=== PATIENT | female | born 2000 | race Caucasian/White ===

== ENCOUNTER 2021-09-13 21:36 | Emergency (ER) | payer SELFPAY ==
[~2021-09-13] VITALS: Ht 172.7 cm; Wt 68.0 kg
[2021-09-14 01:45] VITALS: BP 115/65
== END 2021-09-14 02:15 | disposition home or self-care (01) ==
LOC: ER 21:36
DX: R55 Syncope and collapse (principal); F12.10 Cannabis abuse, uncomplicated; F10.129 Alcohol abuse with intoxication, unspecified; Y90.0 Blood alcohol level of less than 20 mg/100 ml; F41.9 Anxiety disorder, unspecified
CPT/HCPCS: 99283